=== PATIENT | female | born 1990 | race Caucasian/White ===

== ENCOUNTER 2017-12-19 09:24 | Emergency (ER) | payer BC ==
[~2017-12-19] VITALS: Ht 160 cm; Wt 63.5 kg
[~2017-12-19 09:24] MED LIST: AMOXICILLIN 50500 MG PO
[2017-12-19] MEDS ORDERED: CLEOCIN HCL150 MG PO (10:16)
[2017-12-19 10:21] VITALS: BP 125/70
== END 2017-12-19 10:22 | disposition home or self-care (01) ==
LOC: M.ERS 09:24
DX: K02.9 Dental caries, unspecified (principal); F17.210 Nicotine dependence, cigarettes, uncomplicated; Z88.0 Allergy status to penicillin

== ENCOUNTER 2018-02-12 18:55 | Emergency (ER) | payer BC ==
[~2018-02-12] VITALS: Ht 162.6 cm; Wt 65.8 kg
[~2018-02-12 18:55] MED LIST changes: +CLEOCIN HCL150 MG PO
[2018-02-12] MEDS ORDERED: NOHOMEMEDICATIONS (19:11)
[2018-02-12 19:21] LABS: URINE BILIRUBIN NEGATIVE (Negative); URINE BLOOD 1+ (Negative); URINE COLOR STRAW; URINE GLUCOSE-RANDOM NEGATIVE (Negative); URINE KETONES NEGATIVE (Negative); URINE LEUKOCYTES 3+ (Negative); URINE NITRITE NEGATIVE (Negative); URINE PROTEIN NEGATIVE (Negative); URINE SPECIFIC GRAVITY 1.015 (1.005-1.030); URINE UROBILINOGEN 0.2 E.U./dl (0.2-1.0)
[2018-02-12 19:22] LABS: URINE CLARITY SL HAZY
[2018-02-12 19:29] LABS: SQUAMOUS 4-10 Moderate /LPF (0-3); WBC CLUMPS Few (None Seen)
[2018-02-12 19:30] LABS: BACTERIA 1-9 Few /HPF (None Seen); CASTS None Seen /LPF (None Seen); CRYSTALS None Seen /LPF (None Seen); MUCUS None Seen strn/LPF (None Seen)
[2018-02-12] MEDS ORDERED: LEVAQUIN 500 M500 M2 PO (19:44)
[2018-02-12] MEDS ORDERED: PYRIDIUM100 M1 PO (19:44)
[2018-02-12] MEDS ORDERED: ONDANSETRON HCL4 M2 PO (19:49)
[2018-02-12 20:23] VITALS: BP 126/59
== END 2018-02-12 20:26 | disposition home or self-care (01) ==
LOC: M.ERS 18:55
PROVIDERS: Nurse Practitioner Family
DX: N39.0 Urinary tract infection, site not specified (principal); F17.200 Nicotine dependence, unspecified, uncomplicated; Z88.0 Allergy status to penicillin

== ENCOUNTER 2018-06-25 15:49 | Emergency (ER) | payer OTHER ==
[~2018-06-25] VITALS: Ht 160 cm; Wt 63.5 kg
[~2018-06-25 15:49] MED LIST changes: +LEVAQUIN 500 M500 M2 PO; +NOHOMEMEDICATIONS; +ONDANSETRON HCL4 M2 PO; +PYRIDIUM100 M1 PO
[2018-06-25 16:01] VITALS: BP 122/89
[2018-06-25 16:03] LABS: URINE BILIRUBIN NEGATIVE (Negative); URINE BLOOD NEGATIVE (Negative); URINE CLARITY CLEAR; URINE COLOR YELLOW; URINE GLUCOSE-RANDOM NEGATIVE (Negative); URINE KETONES TRACE (Negative); URINE LEUKOCYTES-REFLEX 2+ (Negative); URINE NITRITE-REFLEX NEGATIVE (Negative); URINE PROTEIN NEGATIVE (Negative); URINE SPECIFIC GRAVITY >= 1.030 (1.005-1.030); URINE UROBILINOGEN 0.2 E.U./dl (0.2-1.0)
[2018-06-25] MEDS ORDERED: AZO1 EACH PO (16:03)
[2018-06-25 16:09] LABS: CASTS None Seen /LPF (None Seen); MUCUS 0-3 Light strn/LPF (None Seen); SQUAMOUS >10 Many /LPF (0-3)
[2018-06-25 16:10] LABS: URINE WBC-REFLEX 6-15 Few /HPF (0-5)
[2018-06-25 16:11] LABS: CRYSTALS None Seen /LPF (None Seen); URINE RBC None Seen /HPF (0-2)
[2018-06-25] MEDS ORDERED: MACROBID 100 M100 M1 PO (16:15)
== END 2018-06-25 16:27 | disposition home or self-care (01) ==
LOC: M.ERS 15:49
PROVIDERS: Nurse Practitioner Family
DX: N39.0 Urinary tract infection, site not specified (principal); F17.210 Nicotine dependence, cigarettes, uncomplicated; Z88.0 Allergy status to penicillin